=== PATIENT | male | born 1990 | race American Indian/Alaskan Native ===

== ENCOUNTER 2021-11-13 01:10 | Inpatient (IN) | payer SELFPAY ==
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
[2021-11-13] MEDS ORDERED: SODIUM CHLORIDE 0.9% 1000 ML 1,000 ML IV ONE ×4 (01:47→05:51)
[2021-11-13 01:56] LABS: ABG Base Excess -23.8 mmol/L (-2.0-3.0); ABG HCO3 5.6 mmol/L (20.0-26.0); ABG Methemoglobin 0.9 % (0.0-1.5); ABG Oxygen Saturation 96.4 % (95.0-99.0); ABG PO2 112.3 mm Hg (80.0-90.0)
[2021-11-13 02:29] LABS: INR 1.1 (0.87-1.13)
[2021-11-13 02:30] LABS: Partial Thromboplastin Time 28.8 Sec. (24.2-36.6)
[2021-11-13 02:36] LABS: Creatine Kinase MB 1.2 ng/mL (0.0-4.0)
[2021-11-13 02:37] LABS: Alanine Aminotransferase 41 units/L (7-56); Albumin 4.6 g/dL (3.9-5); BUN/Creatinine Ratio 5; Blood Urea Nitrogen 13 mg/dL (9-20); Calcium 10.2 mg/dL (8.4-10.2); Hemolysis Index 52
[2021-11-13 02:42] LABS: Free T4 (Free Thyroxine) 0.87 ng/dL (0.76-1.46)
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
[2021-11-13 02:51] LABS: ABG PH 7.025 pH Units (7.350-7.450)
[2021-11-13] MEDS ORDERED: SODIUM BICARB 8.4% 50 MEQ/50 ML SYRINGE IV ONE (02:53)
[2021-11-13] MEDS ORDERED: CALC GLUCONATE 1GM/NS 100 ML 1 GM/100 ML BAG IV ONE (03:00)
[2021-11-13] MEDS ORDERED: SODIUM POLYSTYRENE 15 GM/60 ML ORAL LIQD PO ONE (03:04)
[2021-11-13 03:15] LABS: Hematocrit 40.3 % (35.5-45.6); Hemoglobin 13.6 gm/dl (11.8-15.2); Mean Corpuscular HGB Conc 34 % (32-34); Mean Corpuscular Volume 97 fl (84-94); Platelet Count 300 K/mm3 (140-440); Red Blood Count 4.15 M/mm3 (3.65-5.03); Red Cell Distribution Width 12.8 % (13.2-15.2)
[2021-11-13 05:29] LABS: Band Neutrophils # (Manual) 1.5 K/mm3; Basophils % (Manual) 0 % (0.0-1.8); Platelet Estimate Consistent w Auto; RBC Morphology Normal; Total Cells Counted 100
[2021-11-13 05:29] LABS: Amphetamine Screen,Urine Negative; Methadone Screen,Urine Negative; Opiate Screen,Urine Negative
[2021-11-13] MEDS ORDERED: ACETAMINOPHEN 325 MG TAB PO PRN (05:41)
[2021-11-13] MEDS ORDERED: ONDANSETRON 4 MG/2 ML INJ IV PRN (05:41)
[2021-11-13] MEDS ORDERED: MORPHINE 4 MG/1 ML INJ IV PRN (05:41)
[2021-11-13] MEDS ORDERED: MORPHINE 2 MG/1 ML INJ IV PRN (05:41)
[2021-11-13] MEDS ORDERED: ALBUTEROL 2.5 MG/3 ML NEBU IH PRN (05:41)
[2021-11-13 05:47] LABS: Benzodiazepines Screen,Urine Positive; Cannabinoid Screen,Urine Positive; Cocaine Screen,Urine Positive
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
[2021-11-13] MEDS ORDERED: SODIUM BICARBONATE 150 MEQ in DEXTROSE 5% IN WATER 1,000 ML IV SCH (06:00)
[2021-11-13] MEDS ORDERED: cefTRIAXone/NS 2 GM/100 ML 2 GM/100 ML BAG IV SCH (06:00)
[2021-11-13] MEDS ORDERED: D5W/0.45% NACL 1,000 ML IV SCH (06:00)
[2021-11-13] MEDS: SODIUM POLYSTYRENE 15 GM/60 ML ORAL LIQD PO SCH ×2 (06:58→10:26)
--- NOTE | 2021-11-13 07:39 | XRay Report ---
CHEST 1 VIEW INDICATION: Tachycardia. COMPARISON: None FINDINGS: SUPPORT DEVICES: None. HEART: Within normal limits. LUNGS/PLEURA: No acute air space or interstitial disease. ADDITIONAL FINDINGS: None. IMPRESSION: 1. No acute findings. Signer Name: Saúl Silva MD Signed: 11/13/2021 7:35 AM Workstation Name: [id number]
[2021-11-13] MEDS ORDERED: IPRATROPIUM/ALBUTEROL SULFATE 3 ML AMPUL.NEB IH SCH (08:00)
--- NOTE | 2021-11-13 08:57 | Electrocardiograph Report ---
[facility] Test Date: 2021-11-13 Test Time: 01:35:48 Pat Name: SYDNEY VASQUEZ Department: Room: A264 Gender: M Logistics Lead: REGGIE : 1990 Requested By: CRICKET WEST Order Number: [id number] Reading MD: Akbar Bermudez Measurements Intervals [place] Rate: 141 P: 66 VA: 125 QRS: 62 QRSD: 89 T: 8 QT: 301 QTc: 460 Interpretive Statements Sinus tachycardia Left atrial enlargement No previous ECG available for comparison Electronically Signed On 11-13-2021 8:56:45 EDT by Akbar Bermudez
[2021-11-13] MEDS ORDERED: FAMOTIDINE 20 MG/2 ML INJ IV SCH (10:00)
[2021-11-13 11:15] LABS: Calcium 8.9 mg/dL (8.4-10.2)
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
[2021-11-13 12:46] VITALS: BP 120/76
== END 2021-11-13 12:42 | disposition home or self-care (01) | DRG 917 ==
LOC: ED 01:10 → IMCU 06:36
PROVIDERS: ADMIT Hospitalist; ATTEND Internal Medicine
PROC: 4A033R1 Measurement of Arterial Saturation, Peripheral, Percutaneous Approach (ICD-10-PCS; principal; 2021-11-13)
DX: T40.5X1A Poisoning by cocaine, accidental (unintentional), initial encounter (principal); G93.41 Metabolic encephalopathy; N17.0 Acute kidney failure with tubular necrosis; E87.2 Acidosis; R65.10 Systemic inflammatory response syndrome (SIRS) of non-infectious origin without acute organ dysfunction; N18.9 Chronic kidney disease, unspecified; F12.10 Cannabis abuse, uncomplicated; F14.129 Cocaine abuse with intoxication, unspecified; E87.5 Hyperkalemia; Y92.89 Other specified places as the place of occurrence of the external cause; Z79.899 Other long term (current) drug therapy
CPT/HCPCS: 36415; 70450; 71045; 72125; 80048; 80053; 80307; 80320; 82550; 82553; 82803; 83735; 84439; 84443; 84484; 85007; 85025; 85610; 85730; 93005; 94640; G0378; J3490; G0480; J0610; J0696; J7030; J7070